=== PATIENT | male | born 1980 | race American Indian/Alaskan Native ===

== ENCOUNTER 2018-05-29 16:55 | Emergency (ER) | payer OTHER ==
[2018-05-29] MEDS ORDERED: TORADOL IV ONE (17:55)
[2018-05-29] MEDS ORDERED: DILAUDID IV ONE (17:55)
--- NOTE | 2018-05-29 17:56 | Emergency Department Report ---
ED General Adult HPI - General Chief complaint: Urogenital-Male Stated complaint: ABDOMINAL PAIN Time Seen by Provider: 05/29/18 17:11 Source: patient, EMS (ems notes not available at time of chart dictation), RN notes reviewed Mode of arrival: Wheelchair Limitations: No Limitations - History of Present Illness Initial comments: This is a 37-year-old male who is unknown to this provider previously, denies past medical, surgical history, presenting to the ER with nontraumatic right flank pain that radiates down to the right testicle. This pain is constant. It has no exacerbating or relieving factors. Patient indicates she cannot take comfortable regardless of what position he assumes. He endorses right-sided testicular discomfort. He denies irritative, obstructive urinary symptoms. -: Sudden Location: abdomen, pelvis, genitals Radiation: flank Consistency: constant Improves with: none Worsens with: none Associated Symptoms: denies: confusion, chest pain, cough, diaphoresis, fever/ chills, headaches, loss of appetite, malaise, nausea/vomiting, rash, seizure, shortness of breath, syncope, weakness - Related Data Previous Rx's Medication Instructions Recorded Last Taken Type Acetaminophen [Tylenol Arthritis] 650 mg PO Q6HR PRN #30 tablet.er 05/29/18 Unknown Rx Ibuprofen [Motrin] 600 mg PO Q8H PRN #30 tablet 05/29/18 Unknown Rx Ondansetron [Zofran Odt] 4 mg PO Q8HR PRN #20 tab.rapdis 05/29/18 Unknown Rx Tamsulosin [Flomax] 0.4 mg PO QDAY #30 cap 05/29/18 Unknown Rx oxyCODONE [Roxicodone] 5 mg PO Q6HR PRN #15 tablet 05/29/18 Unknown Rx Allergies Allergy/AdvReac Type Severity Reaction Status Date / Time No Known Allergies Allergy Unverified 05/29/18 17:00 ED Review of Systems ROS: Stated complaint: ABDOMINAL PAIN Other details as noted in HPI Constitutional: malaise. denies: fever Eyes: denies: eye discharge ENT: denies: epistaxis Cardiovascular: denies: chest pain Gastrointestinal: abdominal pain Genitourinary: testicular pain Musculoskeletal: back pain Skin: denies: lesions Neurological: weakness ED Past Medical Hx - Past Medical History Previous Medical History?: No - Surgical History Past Surgical History?: No - Social History Smoking Status: Never Smoker Substance Use Type: Marijuana - Medications Home Medications: Home Medications Medication Instructions Recorded Confirmed Last Taken Type Acetaminophen [Tylenol Arthritis] 650 mg PO Q6HR PRN #30 tablet.er 05/29/18 Unknown Rx Ibuprofen [Motrin] 600 mg PO Q8H PRN #30 tablet 05/29/18 Unknown Rx Ondansetron [Zofran Odt] 4 mg PO Q8HR PRN #20 tab.rapdis 05/29/18 Unknown Rx Tamsulosin [Flomax] 0.4 mg PO QDAY #30 cap 05/29/18 Unknown Rx oxyCODONE [Roxicodone] 5 mg PO Q6HR PRN #15 tablet 05/29/18 Unknown Rx ED Physical Exam - General Limitations: No Limitations General appearance: alert, in distress - Head Head exam: Present: atraumatic, normocephalic - Eye Eye exam: Present: normal appearance, EOMI. Absent: nystagmus - ENT ENT exam: Present: normal exam, normal orophraynx, mucous membranes moist, normal external ear exam - Neck Neck exam: Present: normal inspection, full ROM - Respiratory Respiratory exam: Present: normal lung sounds bilaterally. Absent: respiratory distress - Cardiovascular Cardiovascular Exam: Present: regular rate, normal rhythm, normal heart sounds. Absent: systolic murmur, diastolic murmur, rubs, gallop - GI/Abdominal GI/Abdominal exam: Present: soft, normal bowel sounds. Absent: distended, tenderness, guarding, rebound, rigid, pulsatile mass - Rectal Rectal exam: Present: deferred - exam: Present: normal inspection, other (chaperonne: Isela Helm). Absent : testicular tenderness External exam: Present: normal external exam, other (there is no testicular tenderness. There is normal testicular lie bilaterally. There is normal cremasteric reflex bilaterally.) - Extremities Exam Extremities exam: Present: normal inspection, full ROM, normal capillary refill , other (2+ pulses noted in the bilateral upper, lower extremities. Compartments soft. No long bony tenderness. The pelvis is stable.). Absent: tenderness, pedal edema, joint swelling, calf tenderness - Back Exam Back exam: Present: normal inspection, full ROM, CVA tenderness (R). Absent: tenderness, CVA tenderness (L), paraspinal tenderness, vertebral tenderness - Neurological Exam Neurological exam: Present: alert, oriented X3, CN II-XII intact, normal gait, other (Extraocular movements intact. Tongue midline. No facial droop. Facial sensation intact to light touch in the V1, V2, V3 distribution bilaterally. 5 and 5 strength in 4 extremities.. Sensation is intact to light touch in 4 extremities.). Absent: motor sensory deficit - Psychiatric Psychiatric exam: Present: anxious - Skin Skin exam: Present: warm, dry, intact, normal color. Absent: rash ED Course Vital Signs 05/29/18 05/29/18 05/29/18 16:57 18:36 18:47 Temperature 98.2 F Pulse Rate 76 85 Respiratory 20 16 Rate Blood Pressure 157/113 115/62 O2 Sat by Pulse 98 100 Oximetry - Reevaluation(s) Reevaluation #1: 05/29/18 19:14 Differential diagnosis, including but not limited to: Renal colic, epididymitis , orchitis, appendicitis, AAA Assessment and plan: 37-year-old male with probable first episode of renal colic. He is given Toradol, hydromorphone, and this has completely resolved his pain. An ultrasound was negative for epididymitis, orchitis, testicular torsion. A noncontrast CT scan of the abdomen and pelvis is pending interpretation. Reevaluation #2: 05/29/18 21:36 Patient feels much improved. Urinalysis is not consistent with urinary tract infection. CT scan confirmed the presence of 3 mm distal stone, with mild hydroureter/hydronephrosis. Patient will be started on appropriate pain medication, nausea medication, medical expulsive therapy, and the patient can follow up with outpatient urology. ED Medical Decision Making - Lab Data Result diagrams: 05/29/18 18:03 05/29/18 18:03 Vital Signs 05/29/18 05/29/18 05/29/18 16:57 18:36 18:47 Temperature 98.2 F Pulse Rate 76 85 Respiratory 20 16 Rate Blood Pressure 157/113 115/62 O2 Sat by Pulse 98 100 Oximetry Lab Results 05/29/18 05/29/18 Range/Units 18:03 18:03 WBC 11.0 (4.5-11.0) K/mm3 RBC 5.23 H (3.65-5.03) M/mm3 Hgb 15.4 H (11.8-15.2) gm/dl Hct 46.9 H (35.5-45.6) % MCV 90 (84-94) fl MCH 30 (28-32) pg MCHC 33 (32-34) % RDW 13.7 (13.2-15.2) % Plt Count 239 (140-440) K/mm3 Sodium 142 (137-145) mmol/L Potassium 3.5 L (3.6-5.0) mmol/L Chloride 101.8 (98-107) mmol/L Carbon Dioxide 25 (22-30) mmol/L Anion Gap 19 mmol/L BUN 12 (9-20) mg/dL Creatinine 1.2 (0.8-1.5) mg/dL Estimated GFR > 60 ml/min BUN/Creatinine Ratio 10 % Glucose 107 H (75-100) mg/dL Calcium 10.0 (8.4-10.2) mg/dL Total Bilirubin 0.70 (0.1-1.2) mg/dL AST 13 (5-40) units/L ALT 13 (7-56) units/L Alkaline Phosphatase 72 (35-129) units/L Total Protein 7.5 (6.3-8.2) g/dL Albumin 4.7 (3.9-5) g/dL Albumin/Globulin Ratio 1.7 % Lipase 18 (13-60) units/L - Radiology Data Radiology results: report reviewed, image reviewed Testicular ultrasound negative for testicular torsion. Noncontrast CT scan of the abdomen and pelvis demonstrates a 3 mm distal stone with mild hydroureter. Incidental findings noted in the gallbladder, patient has no right upper quadrant tenderness. Critical care attestation.: If time is entered above; I have spent that time in minutes in the direct care of this critically ill patient, excluding procedure time. ED Disposition Clinical Impression: Renal colic on right side Disposition: DC-01 TO HOME OR SELFCARE Is pt being admited?: No Does the pt Need Aspirin: No Condition: Stable Instructions: Renal Colic (ED) Additional Instructions: Take the pain medication, nausea medication as needed/directed. If taking oxycodone for pain, do not drive, consume alcohol, or make important decisions. CT scan of the abdomen and pelvis demonstrated a right-sided kidney stone. Incidental other findings were noted, please have a primary care doctor contact the medical records department to obtain full CT scan reports and follow up on nonemergent incidental findings. Follow up with a urology specialist within the next 2-3 weeks. Return to the ER right away with you pain, worsened pain, migration of pain, intractable nausea or vomiting, fevers or chills, confusion, inability to tolerate liquid feeds. Referrals: PRIMARY CARE, [Primary Care Provider] - 3-5 Days MIGUEL LOPEZ MD [Staff Physician] - 3-5 Days
[2018-05-29 18:42] LABS: Hematocrit 46.9 % (35.5-45.6); Hemoglobin 15.4 gm/dl (11.8-15.2); Mean Corpuscular HGB Conc 33 % (32-34); Mean Corpuscular Hemoglobin 30 pg (28-32); Mean Corpuscular Volume 90 fl (84-94); Platelet Count 239 K/mm3 (140-440); Red Blood Count 5.23 M/mm3 (3.65-5.03); Red Cell Distribution Width 13.7 % (13.2-15.2)
[2018-05-29 18:57] LABS: Alanine Aminotransferase 13 units/L (7-56); Albumin 4.7 g/dL (3.9-5); BUN/Creatinine Ratio 10; Blood Urea Nitrogen 12 mg/dL (9-20); Hemolysis Index 4; Lipase 18 units/L (13-60)
--- NOTE | 2018-05-29 19:09 | Ultrasound Report ---
FINAL REPORT PROCEDURE: US TESTICULAR DOPPLER COMP TECHNIQUE: Real-time desai-scale and color flow Doppler sonography in multiple planes of the scrotum, testicles, and epididymes was performed. Velocity spectral waveform analysis Doppler imaging of the arterial inflow and venous outflow of the testicles was performed with image documentation. CPT 58285 and 28230 HISTORY: Pain. Swelling to right testicle. COMPARISON: No prior studies are available for comparison. FINDINGS: RIGHT TESTICLE: Size: 4.9 x 2.5 x 3.2 cm. Appearance: Normal size. Echotexture is slightly heterogeneous. Arterial blood flow: Normal spectral waveforms, flow velocities and color flow images.. Venous blood flow: Normal spectral waveforms and color flow images. Right epididymis: Normal size and echotexture . Hydrocele: Small hydrocele. LEFT TESTICLE Size: 5.1 x 2.6 x 3.2 cm. Appearance: Normal size. Echotexture slightly heterogeneous. Arterial blood flow: Normal spectral waveforms, flow velocities and color flow images.. Venous blood flow: Normal spectral waveforms and color flow images. Leftepididymis: Normal size and echotexture . Hydrocele: Small hydrocele. IMPRESSION: Flow seen in both testicles. Echotexture is slightly heterogeneous bilaterally without discrete mass. Small bilateral hydroceles.
--- NOTE | 2018-05-29 20:55 | Cat Scan Report ---
FINAL REPORT PROCEDURE: CT ABDOMEN PELVIS WO CON TECHNIQUE: Computerized axial tomography of the abdomen and pelvis was performed without intravenous contrast. This study is performed without intravascular contrast material and its sensitivity for abdominal and pelvic pathology, including neoplasms, inflammation, abscess, free fluid, thrombosis, arterial dissection and infarction, is reduced compared with a contrast enhanced study. HISTORY: flank pain COMPARISON: No prior studies are available for comparison. FINDINGS: Liver, spleen, pancreas and bilateral adrenal glands are within normal limits. A 3 millimeter calculus is noted at the right vesicoureteral junction with mild degree right hydronephrosis and hydroureter. Left kidney is unremarkable. Urinary bladder is empty. Aorta is of normal caliber. There is no free air. Minimal degree free fluid is noted in the pelvic cavity. Multiple calculi are noted in the gallbladder which is partially distended. Small bowel loops are within normal limits. There is mild degree residual stool. Appendix is normal. Vertebral height is normal. IMPRESSION: 3 millimeter calculus right vesicoureteral junction with obstructive uropathy. Cholelithiasis. Ultrasound evaluation is recommended. Minimal degree of free fluid is noted in the pelvic cavity..
[2018-05-29 21:18] LABS: Bacteria,Urine 1+ /HPF (Negative); Bilirubin,Urine NEG (Negative); Blood,Urine LG (Negative); Color,Urine Yellow (Yellow); Mucus,Urine 3+ /HPF; Urobilinogen,Urine < 2.0 mg/dL (<2.0)
[2018-05-29 22:19] VITALS: BP 110/35
== END 2018-05-29 22:18 | disposition home or self-care (01) ==
LOC: ED 16:55
DX: N23 Unspecified renal colic (principal); F12.10 Cannabis abuse, uncomplicated
CPT/HCPCS: 36415; 74176; 80053; 81001; 83690; 85027; 93975; 96374; 96375; 99284; J1170; J1885